=== PATIENT | female | born 1990 | race Caucasian/White ===

== ENCOUNTER 2025-03-13 08:43 | Emergency (ER) | payer OTHER ==
[~2025-03-13] VITALS: Ht 180.3 cm; Wt 90.0 kg
[2025-03-13] MEDS: HALOPERIDOL LACTATE 5MG/ML VIAL IM ONE ×2 (09:04→12:00)
[2025-03-13] MEDS: MIDAZOLAM HCL 2 MG/2 ML VIAL IM ONE ×2 (09:04→12:00)
[2025-03-13 09:25] LABS: BASOPHILS % 0.7 % (0.0-2.0); EOSINOPHILS % 0.5 % (0.0-5.0); HEMATOCRIT. 42.6 % (36.0-48.0); HEMOGLOBIN. 13.9 g/dL (12.0-16.0); LYMPHOCYTES % 14.4 % (20.0-50.0); MEAN CORPUSCULAR HEMOGLOBIN 28.6 pg (28.0-32.0); MEAN CORPUSCULAR HGB CONC 32.7 g/dL (31.0-37.0); MEAN CORPUSCULAR VOLUME 87.7 fL (81.0-99.0); MEAN PLATELET VOLUME 7.5 fl (7.4-10.4); MONOCYTES % 7.6 % (2.0-8.0); NEUTROPHILS % 76.8 % (40.0-76.0); PLATELET 264 x1000/uL (130-400); RED BLOOD CELL COUNT 4.86 mill/uL (4.2-5.4); RED CELL DISTRIBUTION WIDTH 13.4 % (11.6-14.6); WHITE BLOOD COUNT 15.5 x1000/uL (4.5-11.0)
[2025-03-13 09:37] LABS: CALCIUM 9.7 mg/dL (8.7-10.4); CARBON DIOXIDE 23 mEq/L (21-32); CHLORIDE 106 mEq/L (98-107); POTASSIUM 3.4 mEq/L (3.5-5.1); SODIUM 137 mEq/L (136-145)
[2025-03-13 09:42] LABS: GLUCOSE 78 mg/dL (70-105)
[2025-03-13 09:43] LABS: ETHANOL BLOOD < 10 mg/dL (<10); UREA NITROGEN BLOOD 20 mg/dL (9-23)
[2025-03-13 09:44] LABS: ACETAMINOPHEN < 2 ug/mL (10-30)
[2025-03-13 09:47] LABS: HCG SCREEN NEGATIVE
[2025-03-13 13:10] VITALS: O2SAT 100
[2025-03-13 21:32] LABS: CLARITY URINE CLEAR (CLEAR); COLOR URINE YELLOW (YELLOW); GLUCOSE URINE NEGATIVE (NEGATIVE); KETONES URINE 1+ (NEGATIVE); LEUKOCYTE ESTERASE URINE NEGATIVE (NEGATIVE); NITRITE URINE NEGATIVE (NEGATIVE); OCCULT BLOOD URINE NEGATIVE (NEGATIVE); PH URINE 5.5 (4.5-8.0); PROTEIN URINE TRACE (NEGATIVE); SPECIFIC GRAVITY URINE 1.033 (1.005-1.030)
[2025-03-13 21:46] LABS: *AMPHETAMINES SCREEN URINE PRESUMPTIVE POSITIVE (NEGATIVE); *BARBITURATES SCREEN URINE NEGATIVE (NEGATIVE); *BENZODIAZEPINES SCREEN URINE PRESUMPTIVE POSITIVE (NEGATIVE); *COCAINE SCREEN URINE NEGATIVE (NEGATIVE)
[2025-03-13 21:47] LABS: BACTERIA URINE TRACE; CANNABINOID URINE SCREEN PRESUMPTIVE POSITIVE (NEGATIVE); ECSTASY MDMA SCREEN URINE CONF.TEST INDICATED (NEGATIVE); METHADONE URINE SCREEN NEGATIVE (NEGATIVE); OPIATES URINE SCREEN NEGATIVE (NEGATIVE); PHENCYCLIDINE URINE SCREEN PRESUMTIVE POSITIVE (NEGATIVE); RBC URINE 0-2 /hpf (0-2); SQUAMOUS EPITHELIAL CELL URINE 1+ /lpf (RARE/1+); WBC URINE 0-2 /hpf (0-2)
[2025-03-14 19:49] VITALS: BP 126/70; PULSE 96; RESP 18; TEMP 36.7; O2SAT 100
[2025-03-14] MEDS ORDERED: OLANZAPINE 5MG TABLET PO SCH (21:00)
== END 2025-03-14 19:58 ==
LOC: ER 08:43
DX: R46.1 Bizarre personal appearance (principal); R45.1 Restlessness and agitation; Z79.899 Other long term (current) drug therapy; Z20.822 Contact with and (suspected) exposure to COVID-19
CPT/HCPCS: 80305; 80048; 81003; 80307; 80329; 80320; 84703; 85025; 36415; 96372; 99291; 87426; J1630; J2250; Z7610 ×4; G0480